=== PATIENT | male | born 1980 | race Caucasian/White ===

== ENCOUNTER 2019-04-11 18:27 | Emergency (ER) | payer SELFPAY ==
--- NOTE | 2019-04-11 18:35 | Event Note ---
ED Screening Note ED Screening Note: pt presents with dysuria that began yesterday denies any penile discharge denies any testicular edema or testicular pain STD hx: syphilis 4-5 years ago PMHx: none no allergies to meds This initial assessment/diagnostic orders/clinical plan/treatment(s) is/are subject to change based on patients health status, clinical progression and re- assessment by fellow clinical providers in the ED. Further treatment and workup at subsequent clinical providers discretion. Patient/guardian urged not to elope from the ED as their condition may be serious if not clinically assessed and managed. Initial orders include: UA, G/C
[2019-04-11 18:36] VITALS: BP 146/98
[2019-04-11 19:08] LABS: Bilirubin,Urine NEG (Negative); Blood,Urine NEG (Negative); Color,Urine Yellow (Yellow); Protein,Urine <15 mg/dL mg/dL (Negative); Urobilinogen,Urine < 2.0 mg/dL (<2.0)
== END 2019-04-11 21:05 | disposition left against medical advice (07) ==
LOC: ED 18:27
DX: R10.30 Lower abdominal pain, unspecified (principal); Z53.21 Procedure and treatment not carried out due to patient leaving prior to being seen by health care provider
CPT/HCPCS: 81001; 87086; 87591